=== PATIENT | female | born 1985 | race Caucasian/White ===

== ENCOUNTER 2020-12-11 20:02 | Emergency (ER) | payer BC ==
[~2020-12-11] VITALS: Ht 160 cm; Wt 86.3 kg
[2020-12-11] MEDS ORDERED: diphenhydrAMINE 50 mg/ml inj IV ONE ×2 (21:10→21:25)
[2020-12-11] MEDS ORDERED: normal saline 1000ml 1,000 ML IV ONE (21:10)
[2020-12-11] MEDS ORDERED: methylPREDNISolone sod succ 125mg/2ml vial IV ONE (21:10)
[2020-12-11] MEDS ORDERED: ondansetron/PF 4mg/2ml inj IV ONE (21:20)
[2020-12-11] MEDS ORDERED: EPIN0.3P3 IM (22:05)
[2020-12-11 22:25] VITALS: BP 11/69
== END 2020-12-11 22:26 | disposition home or self-care (01) ==
LOC: ER 20:04
DX: L29.9 Pruritus, unspecified (principal); T47.1X5A Adverse effect of other antacids and anti-gastric-secretion drugs, initial encounter; R11.2 Nausea with vomiting, unspecified; Z72.89 Other problems related to lifestyle; Z88.8 Allergy status to other drugs, medicaments and biological substances; Z79.899 Other long term (current) drug therapy; Y92.89 Other specified places as the place of occurrence of the external cause
CPT/HCPCS: 93005; 96361; 96374; 96375; 99284; J1200; J2405; J2930; J7030